=== PATIENT | male | born 1940 | race Caucasian/White ===

== ENCOUNTER 2016-05-05 16:25 | Inpatient (IN) | payer MEDICARE, OTHER ==
[~2016-05-05] VITALS: Ht 190.5 cm; Wt 129.7 kg
[~2016-05-05 16:25] MED LIST: ASPI-973 PO; ATOR80TA PO; CA C1TAB29 PO; EZET10TA PO; FLAX100010 PO; LISI-571 PO; MAGN250T29 PO; METO50TA3 PO; NIAC500C3 PO; NITR0.4T SL; RIVA20TA PO; TRAV2.5D5 AFFECT_EYE; UBID200C2 PO
[2016-05-05 16:34] VITALS: BP 158/75; PULSE 93; RESP 20; O2SAT 99
--- NOTE | 2016-05-05 16:35 | ED.REPORT ---
HPI-Syncope Date of Service May 05, 2016 ED Provider: Shahid García MD History of Present Illness: OCC This is a 76 year old male with a history of CAD, peripheral vascular disease, a -flutter, HTN, hyperlipidemia, s/p ablation and CABG x3 presenting to the emergency department via EMS due to near-syncopal episode that occurred just prior to arrival. Pt states he walked to his kitchen, became lightheaded, sat down and symptoms resolved. He then stood up, became lightheaded once again became lightheaded and developed heart palpitations and SOB, he consequently called 911. Associated symptoms during that episode include chest discomfort with radiation to the jaw on a pain scale of 2/10. Duration from symptom onset and resolution of symptoms was about 20 minutes. Pt states symptoms are similar to those he experienced previously with atrial flutter. Denies lower extremity swelling, chest pain, nausea, vomiting, diaphoresis or loss of consciousness at this time. Electronic Device Repairer Dr. Rivera. Nursing Notes Stated Complaint: SYNCOPE Nursing [facility]ed: Yes [facility] not reconciled) Allergies: Coded Allergies: iodine (Verified Allergy, Intermediate, 05/05/16) Scheduled Aspirin (Aspirin) 81 Mg Tablet 81 MG PO DAILY Atorvastatin (Lipitor) 80 Mg Tablet 80 MG PO QPM Ca Cmb 1/Vit D3/B-6/FA/B12/Av (Vitamin D3-Aloe 1,000 Unit Tab) 1 Each Tablet 1 EACH PO DAILY Ezetimibe (Zetia) 10 Mg Tablet 10 MG PO QPM Flaxseed (Flaxseed Oil) 1,000 Mg Capsule 1,000 MG PO DAILY Lisinopril (Lisinopril) 5 Mg Tablet 10 MG PO BID Magnesium Oxide (Magnesium) 250 Mg Tablet 250 MG PO DAILY Metoprolol Tartrate (Metoprolol Tartrate) 50 Mg Tablet 25 MG PO BIDWM Niacin (Niacin) 500 Mg Capsule.er 500 MG PO QPM Rivaroxaban (Xarelto) 20 Mg Tablet 20 MG PO QPM Travoprost (Benzalkonium) (Travoprost 0.004% Eye Drop) 2.5 Ml Drops 2.5 ML AFFECT_EYE QPM Ubidecarenone (Co Q-10) 200 Mg Capsule 200 MG PO BID Scheduled PRN Nitroglycerin SL (Nitrostat) 0.4 Mg Tab.subl 0.4 MG SL Q5MIN PRN PRN For Chest Pain General Time Seen by Provider: 16:32 Chief Complaint [place] faint Hx Obtained From: Patient Arrived By: Ambulance Onset Occurred: Just prior to arrival Symptom Duration: Since onset Severity: Current: No pain currently Pertinent Negative: Pt denies other symptoms Recent Healthcare: No recent doctor visit, No recent hospitalization Similar Sx Previous: No Past Medical History Past Medical History Notes: Electronic Device Repairer: Dr. 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 Physical Exam Initial Vital Signs Vital Signs (First) Date Time Temp Pulse Resp B/P Pulse Ox O2 Delivery O2 Flow Rate FiO2 05/05/16 16:34 35.8 93 20 158/75 99 Room Air - Initial VS: Reviewed, Unavailable (none on chart, ordered), Vital signs abnormal Head / Eyes: Atraumatic, Normocephalic, PERRL ENT: Mucous membranes moist, Conjunctiva normal, No scleral icterus Neck: Supple, Non-tender, Full range of motion Abdomen / GI: Soft, Non-tender, No guarding, No rebound, No distention Upper Extremities: Vascular intact, Neuro intact, No swelling, No tenderness Skin: Warm, Dry, No cyanosis Psychiatric: Mood/affect normal, Behavior normal, Normal thought content General/Constitutional: Awake, Alert, Well appearing Respiratory / Chest: Breath sounds NL, Breath sounds = bilat, No respiratory distress, No rales, No rhonchi, No wheezing Cardiovascular: Heart rate NL, Regular rhythm, Heart sounds NL, No murmurs, No rubs Lower Extremity / Pelvis / MS: Inspection NL, No swelling, Non-tender, No erythema, No deformity, Neurologic intact, Vascular intact, No edema Neurologic: Oriented X3, Speech NL, No motor deficits, No sensory deficits, CN II - XII intact, Reflexes equal bilat, Cerebellar NL Interpretation & Diagnostics Lab Results Interpretation Result Diagram: 05/05/16 1700 05/05/16 1700 Test 05/05/16 17:00 White Blood Count 4.5th/mm3 (3.8-10.1) Red Blood Count 4.80mil/mm3 (4.40-5.80) Hemoglobin 14.2g/dL (13.8-17.2) Hematocrit 42.8% (41.0-50.0) Mean Corpuscular Volume 89.2fL (81-100) Mean Corpuscular Hemoglobin 29.6pg (27.0-35.0) Mean Corpuscular Hemoglobin Concent 33.2% (32.0-37.0) Red Cell Distribution Width 14.1% (12.3-15.4) Platelet Count 96bil/L (150-400) Neutrophils (%) (Auto) 65.0% (40-74) Lymphocytes (%) (Auto) 21.5% (14-46) Monocytes (%) (Auto) 12.2% (4-12) Eosinophils (%) (Auto) 1.1% (0-5) Basophils (%) (Auto) 0.2% (0-3) Prothrombin Time 11.4sec (8.1-12.5) Prothromb Time International Ratio 1.06ratio Sodium Level 141mEq/L (134-144) Potassium Level 4.3mEq/L (3.5-5.2) Chloride Level 104mEq/L (97-108) Carbon Dioxide Level 24mmol/L (18-29) Blood Urea Nitrogen 12mg/dL (8-27) Creatinine 0.75mg/dL (0.76-1.27) Estimat Glomerular Filtration Rate 108mL/min (>59) Glucose Level 99mg/dL (60-99) Calcium Level 8.9mg/dL (8.5-10.1) Magnesium Level 2.0mg/dL (1.6-2.6) Total Bilirubin 0.9mg/dL (0.0-1.2) Aspartate Amino Transf (AST/SGOT) 31U/L (0-50) Alanine Aminotransferase (ALT/SGPT) 27U/L (0-44) Alkaline Phosphatase 65U/L (25-160) Troponin T < 0.010ug/L (0.0-0.011) Total Protein 6.3g/dL (6.4-8.4) Albumin 4.2g/dL (3.4-5.0) Thyroid Stimulating Hormone (TSH) 2.070uIU/mL (0.450-4.500) Hold Wheeler Top Tube Received (Received) Lab Results Interpretation: CBC mild thrombocytopenia CMP normal Troponin negative ECG Interpretation ECG Interpretation: NSR at a rate of [address] depression rate increased from previous ECG, pre-hospital ECG demonstates regular rate, tachycardia with more severe lateral ST depression Time: 16:50 Interpreted by: ED physician X-Ray Chest Interpretation Chest Xray Interpretation: IMPRESSION: 1. Indistinct opacities in the lung bases are nonspecific and may represent atelectasis, aspiration, or pneumonia. Dictated by: Giovanni Guzman M.D. on 05/05/2016 at 16:59 Approved by: Giovanni Guzman M.D. on 05/05/2016 at 17:01 Re-Eval/Medical Decision Med Decision/Clinical Course This is a 76-year-old male with a history of ablation for atrial flutter, and a previous history of coronary artery disease, who presents with an episode of near-syncope in a tachydysrhythmia captured on prehospital EKG. The patient notes that he presented to clinic/Hospital in recent weeks with asymptomatic bradycardia but apparently 19, as a result displayed a joanie was discontinued. He reports he has been doing well until today when he developed rapid palpitations and near syncope without actual syncope., Waited 5 minutes seemed to feel better try to get up and symptoms recurred-so EMS was contacted. He lives out of [facility] and was transported by EMS. He is found to have a profound tachycardia on evaluation by EMS, but had a spontaneous resolution to what appears to be in normal sinus rhythm. While he has a history of atrial flutter and a right bundle-branch block, I do not appreciate flutter waves. In the morphology of the QRS appears identical between his current EKG with a resting normal heart rate, and his tachycardia-arguing for SVT with aberrancy rather than ventricular tachycardia. he was asymptomatic on arrival. Medically appears well in no distress. However while in the department he had several bouts of brief tachydysrhythmia the same thing happening have a rapid heart rate, it would spontaneously resolve, but again did not demonstrate blood or weighs, and the underlying rhythm appears to be SVT rather than atrial flutter. His first episode had spontaneous resolution, and the second episode a modified Valsalva maneuver per the recent Lancet article was employed with some improvement, and cardioversion a minute later. Unfortunately, his recent bradycardia complicates things she is now describing essentially a tachycardia-bradycardia syndrome. Because of that history of bradycardia with beta blockers, and esmolol short acting drip was used - because he actually was cardioverted back to normal rhythm before the initiation of the drip, started on the drip without a bolus. Again the drip was used because it out patient's now had a total of 3-4 episodes of symptomatic tachydysrhythmia. His labs are normal. Cardiology has been consulted and reveals case been discussed with Dr. Samayoa Patient is being admitted to the hospitalist service. He is admitted in improved condition Source of Hx: Old records, EMS Re-Evaluation/Progress : Time of Eval: 18:12 Re-Evaluation/Progress Note: Discussed patient care with family members now present in the room, plan for admission, all questions addressed. Consultation #1: Referral / Consult Name: Brandan Samayoa MD Consulted With: Cardiology Call Returned at: 18:12 Computer Forwarding System Markup Clerk: Will see patient, Agrees with eval, Agrees with plan Consultation #2: Referral / Consult Name: Caden Cannon MD Consulted With: Hospitalist Call Returned at: 18:21 Differential Diagnosis: Positive: Dysrhythmia (Tachy-Thomas), Negative: Acute coronary syndrome, Alcohol abuse, Anxiety reaction, Electrolyte disorder, Malingering, Pneumothorax, Prolonged QT syndrome, Pulmonary embolus, Seizure, Subarachnoid hemorrhage, Vasovagal syncope Counseled Regarding: Diagnosis, Lab results, Need for follow-up, Need for admission Discharge & Departure Impression: Primary Impression: Atrial arrhythmia Additional Impression: Tachycardia-bradycardia syndrome Disposition: ADMITTED TO HOSPITAL Discharge Condition All VS Reviewed: Yes Condition: Stable Referrals: Damian Latham MD (PCP) Crit Care Except Billable Proc Time Spent: 30-74 minutes Services Performed: Patient management by me, Time spent at bedside, Reviewing test results, Reviewing imaging, Discussing patient care, Documentation in record, Time with fam/surrogate Scribe Attestation Portions of this note were transcribed by Jorge Riggs. I, Dr. García personally performed the history, physical exam and medical decision-making; I reviewed and confirmed the accuracy of the information in the transcribed note. Signed by: ebenezer Vasquez. 05/05/2016, 23:30. Shahid García MD May 05, 2016 16:35 JORGE RIGGS May 05, 2016 16:37
--- NOTE | 2016-05-05 17:02 | DRSVH ---
PROCEDURE: X-RAY CHEST ONE VIEW, PORTABLE ([id number]) INDICATIONS: Syncope TECHNIQUE: One view of the chest was acquired. COMPARISON: [facility], , CHEST 1VW (PORTABLE), 02/27/2014, 10:10. FINDINGS: Surgical changes and devices: Postsurgical changes are redemonstrated in mediastinum with multiple me an sternotomy wires again noted. Lungs and pleura: No pleural effusions or pneumothorax. There are low lung volumes. There are a fe w patchy indistinct opacities in the lung bases, left greater than right. Mediastinum: Mediastinal contours appear unchanged. Heart size is normal. Bones and chest wall: No suspicious bony lesions. Overlying soft tissues appear unremarkable. IMPRESSION: 1. Indistinct opacities in the lung bases are nonspecific and may represent atelectasis, aspiration, or pneumonia. Dictated by: Giovanni Guzman M.D. on 05/05/2016 at 16:59 Approved by: Giovanni Guzman M.D. on 05/05/2016 at 17:01
[2016-05-05 17:20] LABS: BASOPHILS % (AUTO) 0.2 % (0-3); EOSINOPHILS % (AUTO) 1.1 % (0-5); MONOCYTES % (AUTO) 12.2 % (4-12); Mean Corpuscular Hemoglobin 29.6 pg (27.0-35.0); Mean Corpuscular Volume 89.2 fL (81-100); Platelet Count 96 bil/L (150-400)
[2016-05-05 17:35] LABS: INR 1.06 ratio
[2016-05-05 17:44] LABS: TROPONIN T < 0.010 ug/L (0.0-0.011)
[2016-05-05] MEDS ORDERED: Esmolol 10,000 mCg/mL 10 mL Inj IVPUSH ONE (18:10)
[2016-05-05] MEDS ORDERED: Polyethylene Glycol (PEG) 17 Gm Powder PO PRN (18:25)
[2016-05-05] MEDS ORDERED: Ondansetron 2 mg/mL 2 mL Inj IVPUSH PRN (18:25)
[2016-05-05] MEDS ORDERED: Alum-Mag Hydrox-Simeth 30 mL Suspension PO PRN (18:25)
[2016-05-05] MEDS: Esmolol 2,500 mg/250 mL NS 2,500,000 MCG in IV Premix 1 EACH IV SCH (18:32)
[2016-05-05 19:16] VITALS: BP 158/90; PULSE 90; RESP 20; O2SAT 99
[2016-05-05 20:02] VITALS: BP 165/95; PULSE 90; RESP 20; O2SAT 98
[2016-05-05 20:13] VITALS: PULSE 91
[2016-05-05 20:19] VITALS: BP 163/93; PULSE 90; RESP 20; O2SAT 96
[2016-05-05 21:02] LABS: APPEARANCE,URINE CLEAR (CLEAR,HAZY); COLOR,URINE YELLOW (YELLOW)
[2016-05-05 21:03] LABS: OCCULT BLOOD,URINE NEGATIVE (NEGATIVE); PH,URINE 7.5 (5.0-8.0); UROBILINOGEN,URINE NORMAL (NORMAL)
[2016-05-05 23:51] VITALS: BP 144/84; PULSE 91; RESP 13; O2SAT 95
--- NOTE | 2016-05-05 23:53 | PCM.HPMED ---
Subjective Date of Service May 05, 2016 Primary Provider: Admitting Physician: Caden Cannon MD Primary Care Physician: Elmer Landaverde MD Attending Physician: Caden Cannon MD Admit Status: From the Emergency Department, Full Admit, [facility] Telemetry Chief Complaint: Near syncope History of Present Illness: Nikolas Hawthorne is a 76 year old male with Coronary artery disease, peripheral vascular disease, a-flutter, HTN, hyperlipidemia, s/p ablation and CABG x3 presenting to the emergency department via EMS due to near-syncopal episode that occurred just prior to arrival. Pt states he walked to his kitchen, became lightheaded, sat down and symptoms resolved. He then stood up, became lightheaded once again became lightheaded and developed heart palpitations and SOB, he consequently called 911. Associated symptoms during that episode include chest discomfort with radiation to the jaw on a pain scale of 2/10. Duration about 20 minutes. Patient reports this is similar to his chronic anginal symptoms Pt states symptoms are similar to those he experienced previously with atrial flutter. Denies lower extremity swelling, chest pain, nausea, vomiting, diaphoresis or loss of consciousness at this time. Supervisor Mechanic [employer] Dr. Rivera. stopped his Metoprolol recent when his heart rate dropped to 20. He was also wearing a Zio patch until last Thursday, results has not been discussed yet. Medication changes includes stopping Metoprolol and increasing dose of Lisinopril to 20 mg bid (from 10 mg bid) Case discussed with Dr García, initial EKG showed SVT with aberrancy with HR 150s. Esmolol drip was started. He spoke to Dr Samayoa who will consult to determine a pacemaker placement Review of Systems: Pertinent positives as noted in HPI. All other systems were reviewed and are negative Allergies Coded Allergies: iodine (Verified Allergy, Intermediate, 05/05/16) Home Medications From [facility], not yet confirmed Nikolas Hawthorne [id number] 1940 12/03/2015 11:30 AM 03/24 aspirin 81 mg tablet,delayed release take 1 tablet by oral route every day Co Q-10 200 mg capsule 1 capsule by mouth 2 times daily flaxseed oil 1,000 mg capsule 1 capsule by mouth daily Lipitor 40 mg tablet take 0.5 tablet by oral route every day lisinopril 20 mg tablet take 1 tablet by oral route bid magnesium 250 mg tablet 1 tab by mouth daily niacin 500 mg tablet take 1 tablet by oral route every day nitroglycerin 0.[address] 1 tablet by sublingual route for chest pain; may repeat every 5 min up to 3; if pain persists call 911 Travatan Z 0.004 % eye drops instill 1 drop by ophthalmic route every day into affected eye(s) in the evening Vitamin D3 1,000 unit tablet Take 1 tablet daily Zetia 10 mg tablet 1 tablet by mouth daily PMH 1. Coronary artery disease status post CABG 3 in 1976, s/p post PCI and stenting LAD in January 2011, October 2013 2. Hypertension. 3. Hyperlipidemia. 4. Frequent PVCs. 5. Prior unstable angina secondary to vein graft failure. 6. Left groin pseudoaneurysm requiring open repair. 7. Atrial flutter s/p ablation with AVNRT, 1 st degree AV block 8. Carotid stenosis 9. Obstructive Sleep apnea: plan to have sleep study . Surgical History Cardiac cath and CABG with SVG Tonsillectomy Ablation surgery Carotid endarterectomy Carpal tunnel release Cataract surgery Family History Notable for two brothers from heart attacks. Both father and mother had heart disease. Mother had breast cancer Social History Hx Alcohol Use: Yes (Social drinker, dinner time) Hx Substance Use: No Hx Tobacco Use: Yes Smoking Status: Former Smoker (1974) Living Arrangement: with Family Exam Vital Signs Vital Sign - Last Date Time Temp Pulse Resp B/P Pulse Ox O2 Delivery O2 Flow Rate FiO2 05/05/16 20:02 37.2 90 20 165/95 98 Room Air Exam General: Alert, Oriented X3, Cooperative, No acute Distress Eyes: PERRLA, Scleral Anicteric Mouth: Mouth Normal, Mucous Membranes Moist/[place] Neck: Supple, no Thyromegaly, trachea central. Chest & Lungs: Clear to auscultation & percussion, No adventitious breath sounds, no crackles, no wheeze Cardiovascular: Normal S1, Normal S2, No Murmurs/Rubs/Gallops, sinus Rhythm, ( No JVD, no peripheral edema) Pulses: Radial (present and equal), Dorsalis Pedi (present and equal) Abdomen: Soft, Non-tender, Non-distended, Normoactive bowel tones. Musculoskeletal: Unremarkable. Normal range of motion, no swollen or erythematous joints Extremities: No edema, no cyanosis, no clubbing. Venous stasis changes Skin: No rashes. Warm and dry, no erythematous areas Neurological: Grossly neurologically intact, Normal Speech, Sensation Intact Lymphatic: Lymph nodes Cervical and Axillary not palpable. Lab and Diagnostics Labs Laboratory Tests Test 05/05/16 17:00 05/05/16 19:45 White Blood Count 4.5th/mm3 (3.8-10.1) Red Blood Count 4.80mil/mm3 (4.40-5.80) Hemoglobin 14.2g/dL (13.8-17.2) Hematocrit 42.8% (41.0-50.0) Mean Corpuscular Volume 89.2fL (81-100) Mean Corpuscular Hemoglobin 29.6pg (27.0-35.0) Mean Corpuscular Hemoglobin Concent 33.2% (32.0-37.0) Red Cell Distribution Width 14.1% (12.3-15.4) Platelet Count 96bil/L (150-400) Neutrophils (%) (Auto) 65.0% (40-74) Lymphocytes (%) (Auto) 21.5% (14-46) Monocytes (%) (Auto) 12.2% (4-12) Eosinophils (%) (Auto) 1.1% (0-5) Basophils (%) (Auto) 0.2% (0-3) Prothrombin Time 11.4sec (8.1-12.5) Prothromb Time International Ratio 1.06ratio Sodium Level 141mEq/L (134-144) Potassium Level 4.3mEq/L (3.5-5.2) Chloride Level 104mEq/L (97-108) Carbon Dioxide Level 24mmol/L (18-29) Blood Urea Nitrogen 12mg/dL (8-27) Creatinine 0.75mg/dL (0.76-1.27) Estimat Glomerular Filtration Rate 108mL/min (>59) Glucose Level 99mg/dL (60-99) Calcium Level 8.9mg/dL (8.5-10.1) Magnesium Level 2.0mg/dL (1.6-2.6) Total Bilirubin 0.9mg/dL (0.0-1.2) Aspartate Amino Transf (AST/SGOT) 31U/L (0-50) Alanine Aminotransferase (ALT/SGPT) 27U/L (0-44) Alkaline Phosphatase 65U/L (25-160) Troponin T < 0.010ug/L (0.0-0.011) Total Protein 6.3g/dL (6.4-8.4) Albumin 4.2g/dL (3.4-5.0) Thyroid Stimulating Hormone (TSH) 2.070uIU/mL (0.450-4.500) Hold Wheeler Top Tube Received (Received) Result Diagram: 05/05/16 1700 05/05/16 1700 X-Rays, CTs and MRIs X-RAY CHEST ONE VIEW, PORTABLE 05/05 IMPRESSION: 1. Indistinct opacities in the lung bases are nonspecific and may represent atelectasis, aspiration, or pneumonia. Dictated by: Giovanni Guzman M.D. on 05/05/2016 at 16:59 Approved by: Giovanni Guzman M.D. on 05/05/2016 at 17:01 Assessment & Plan Nikolas Hawthorne is a 76 year old male with Coronary artery disease, peripheral vascular disease, a-flutter, HTN, hyperlipidemia, s/p ablation and CABG x3 presenting to the emergency department via EMS due to near-syncopal episode 1. Tachybrady syndrome. Present on admission Recently had significant bradycardia and Metoprolol stopped now dealing with tachycardia due to no rate control medication on board. Differential diagnosis includes Hypothyroidism and Ischemic disease - nothing by mouth after midnight - monitor on telemetry - checking TSH - continue rate control with Esmolol drip - EPS consultation for pacemaker placement with Dr Samayoa - avoid beta blockers 2. Coronary artery disease status post CABG with stenting Difficult to see ischemic changes on EKG given changes changes and RBBB. Chest pain resolved but brief, typical of angina - Troponin negative - no indications for Heparin drip or medical treatments 3. Hypertension. Elevated on admission due to stress or anxiety - continue Lisinopril 20 mg bid 4. Hyperlipidemia. - continue Lipitor and Zetia 5 Obesity with suspected Sleep Apnea - outpatient Sleep study - Cardiac rehab - Acetaminophen as needed for mild pain/fever/headache - Bowel regimen as needed - Antiemetic as needed Patient admitted under inpatient status with expected length of stay > 2 midnights for severity of present symptoms, complexities of treatment plan and risk for adverse event . Resuscitation Status: CPR: Attempt Resuscitation Caden Cannon MD May 05, 2016 20:16
[2016-05-06] VITALS (9 sets, daily range): BP systolic 121–157; BP diastolic 49–84; PULSE 50–90; RESP 12–18; O2SAT 91–97
[2016-05-06] MEDS: Heparin 5,000 Unit/mL Inj SUBQ SCH ×4 (00:01→20:30)
[2016-05-06] MEDS: Esmolol 2,500 mg/250 mL NS 2,500,000 MCG in IV Premix 1 EACH IV SCH ×4 (01:25→16:55)
--- NOTE | 2016-05-06 04:27 | NUR ---
admit note pt a/o times three, clay, moved self over to bed from [facility] at 2015 to room 2009, admit info done per info from pt, med rec done per pt info also, admitting md stevens paged aware that med rec done, no new orders, night hospitalist states home meds can be ordered in am, tele=sr ivcd, pac's and pvc's, bp stable, afebrile, pt c/o left sided cp with some change with deep breath, ekg done, results paged to admitting md, no new orders, no more complaints of cp during the night, esmolol gtt at 50mcg/kg/min when hr 90's and decreased to 25mcg/kg/min at approx 0215 when hr decreased to 60's-sr with pac/pvc's, ls -clear, ra sats mid 90's when pt awake, ra sats when pt asleep=90%, pt placed on two liters o2 per nc=sats =95%-97%, denies n/v, tolerated juice and sandwich upon admit well, npo after mn, see assessment charting, imcu status, see flow sheet for vital signs noted q1hr, plan:npo after mn, echo and cardiology in am,
--- NOTE | 2016-05-06 11:29 | CONS ---
[address] [address] CONSULTATION REPORT PATIENT: ALBERTO YATES : 1940 MR#: [id number] ADMIT: 05/05/2016 JOB ID: [id number] DATE OF SERVICE: 05/06/2016 CARDIOLOGY CONSULTATION: REASON FOR CONSULT: For the evaluation of palpitations, chest discomfort and near syncopal episode. CHIEF COMPLAINT: As stated above. PRESENT HISTORY: This 76-year-old pleasant male who has a complex coronary artery disease including first bypass surgery in 1974, SVG graft to LAD stenting in January 2011, recurrence of angina, status post four-vessel bypass surgery by Dr. Berrios in 2013 with ORTA graft to LAD, and sequential radial graft to diagonal, ramus and OM, LV ejection fraction about 50%-55% based on echocardiogram done in January 2015, mild mitral regurgitation, history of paroxysmal atrial flutter for which he underwent ablation by Dr. Samayoa in February 2015, noncritical carotid artery disease, history of right bundle branch block, first-degree AV block, sinus bradycardia, essential hypertension, hyperlipidemia, degenerative joint disease, history of left iliac artery stenting as well as open repair of pseudoaneurysm of left groin got admitted because of above-mentioned chief complaint. According to the patient, about three weeks ago he went to see his PCP regarding his left knee pain. His heart rate was found to be in 20s. Hence they discussed the case with Dr. Rivera. His metoprolol was discontinued. Four days after discontinuation of metoprolol, his blood pressure started going up. His systolic blood pressure went up to 170s. He started taking lisinopril 20 mg twice a day. Yesterday, he did his exercise. He rides stationary bicycle 3-5 times a week for about half an hour and did some weight lifting and pushing. Then he walked to his kitchen, became lightheaded, sat down and his symptoms got better. Then he stood up again and felt lightheaded. This time he felt that his heart was beating fast. He had chest discomfort with radiation to the jaw. On a scale of 1-10, it was 2-4 in intensity. The whole episode lasted about 20 minutes. He was lightheaded. He did not completely pass out. He did not throw up. He felt some shortness of breath as well. 911 was called. The patient was brought to the ED. He was tachycardia. His heart rate was about 150s. The patient was started on esmolol drip. At present, he is lying down flat. He is feeling better. He is not having more palpitations. No fever, cough, expectoration, chest pain or shortness of breath or stroke-like symptoms. Denies any resting claudication pain. PAST MEDICAL HISTORY: 1. History of CAD, details as stated above including paroxysmal atrial flutter. 2. Status post ablation in February 2015. 3. Noncritical carotid artery disease. 4. Essential hypertension. 5. Hyperlipidemia. 6. Right bundle branch block. 7. First-degree AV block. 8. Frequent PVCs. 9. Obstructive sleep apnea. 10. Left carotid endarterectomy. 11. Tonsillectomy. 12. Cataract surgery. 13. Carpal tunnel surgery. 14. Other problems as stated above. PAST SURGICAL HISTORY: As stated above. ALLERGIES: The patient is allergic to IODINE. SOCIAL HISTORY: Denies any alcohol abuse. The patient has history of tobacco abuse in the past. FAMILY HISTORY: Positive for coronary artery disease. MEDICATIONS AT HOME: He was on: 1. Aspirin 81 mg daily. 2. Lipitor 20 mg daily. 3. Lisinopril 20 mg twice a day. 4. Magnesium. 5. Niacin 500 mg tablet every day. 6. Zetia 10 mg daily. 7. Vitamin D3. 8. Travatan eye drops. REVIEW OF SYSTEMS: Ten point review of systems were obtained. They are negative except as stated above. PHYSICAL EXAMINATION: Blood pressure 157/71, heart rate around 54, respiratory rate 18, oxygen saturation 96%. HEENT: No significant anemia, jaundice. Neck: No apparent JVP. The patient has left carotid endarterectomy scar. I do not appreciate any obvious bruit. Chest: No obvious crepitation or rhonchi. CVS: Clinically S1, S2 normal. No S3, no S4. Very soft ejection systolic murmur at the base. Abdomen: Obese, no obvious pulsatile mass felt. No obvious hepatosplenomegaly. Extremities: Mild pedal edema. Vascular: I can feel distal pulses. No evidence of critical limb ischemia. PERINATOLOGY PHYSICIAN: Alert, oriented to time, place and person. No obvious motor deficits. LABORATORIES: Sodium 141, potassium 4.3, BUN 12, creatinine 0.75. Calcium 8.9, magnesium 2.0 with normal AST, ALT and bilirubin. Troponin T less than 0.010. Albumin 4.2. TSH 2.07. WBC 4.5, hemoglobin 14.2, platelets 96. The patient has chronic thrombocytopenia. In January 2011 platelets were 94. Polymorphs 65. INR 1.06. EKG yesterday by paramedics revealed wide QRS tachycardia, which appears to be regular, rate 179, with underlying right bundle branch block which is old. I suspect that it could be underlying atrial flutter with 2:1 block. There is a right axis with left posterior fascicular block as well which are old. At present, he is in sinus rhythm with frequent PVCs, sometimes ventricular trigeminy or quadrigeminy. EKG at about 8:55 p.m. yesterday revealed likely atrial rhythm with possible 2:1 block with ventricular rate about 91 with underlying right bundle branch block, right axis with left posterior fascicular block. QTc 492 msec. X-ray chest: Normal size heart. There are a few patchy indistinct opacities in the lung bases, left greater than right. ASSESSMENT AND PLAN: Episode of palpitations, lightheadedness, presyncopal episode and chest pain with anginal component in the setting of tachycardia. The patient has known history of atrial flutter status post ablation in February 2015. I think there is a recurrence of atrial flutter with fast ventricular rate. He has a chronic right bundle branch block, left posterior fascicular block as well as first-degree AV block. During tachycardia, the patient has diffuse ST depression suggestive of tachycardia induced demand ischemia as well. His first set of troponin normal. The patient has known coronary artery disease with coronary artery bypass surgery twice, details as stated above, with underlying diffuse atherosclerotic vascular disease including left carotid endarterectomy, essential hypertension, hyperlipidemia, sleep apnea, chronic thrombocytopenia etc. About three weeks ago, metoprolol was discontinued because his heart rate was found to be in 20s. There is a pattern of tachybrady. The patient is symptomatic with tachycardia/bradycardia. For his underlying coronary artery disease as well as management of fast ventricular rate, he will need sinus alexis AV alexis slowing medications like beta joanie. However, profound bradycardia is one of the contraindications. Hence, at this point of time, recommendation is to consider permanent pacemaker and then reinstitute beta joanie. He had atrial flutter ablation. I will talk to Dr. Samayoa to see him regarding consideration of pacemaker as well as ablation of atrial flutter. Considering his CHADS 2 vascular score, he will need anticoagulation as well. Will start him on heparin. Will get 2D echo. We will repeat another CPK troponin. Once he gets pacemaker, he will need ischemic evaluation. If he rules out, it can be done as an outpatient. Clinically no evidence of critical limb ischemia. I discussed the plan with the patient. He agrees and concurs. Thanks for the cardiology consult. Overall time today spent about 80 minutes including reviewing his old records.
[2016-05-06 11:47] LABS: TROPONIN T 0.096 ug/L (0.0-0.011)
--- NOTE | 2016-05-06 13:37 | PCM.PNMED ---
Subjective Date of Service May 06, 2016 Subjective 76-year-old man with history of atrial dysrhythmia presents with presyncopal events, palpitation and ventricular tachycardia. No further presyncopal symptoms overnight. Endorses chronic mild right knee pain, and left inguinal ache. Exam Vital Signs Vital Sign - Last Date Time Temp Pulse Resp B/P Pulse Ox O2 Delivery O2 Flow Rate FiO2 05/06/16 12:16 60 05/06/16 12:04 36.5 16 121/60 95 Room Air 05/06/16 08:00 2.00 Intake and Output 05/05/16 05/05/16 05/06/16 Cumulative From/Thru 15:00 23:00 07:00 05/05/16 16:34 - 05/06/16 05:26 Intake Total 1060 ml 1060 ml Output Total 1200 ml 1200 ml Balance -140 ml -140 ml Intake Oral 780 ml 780 ml IV Total 280 ml 280 ml Output Urine Total 1200 ml 1200 ml # Bowel Movements 0 0 Exam General: Obese man lying flat in bed, no acute distress HEENT: sclerae anicteric, oral mucosa moist Neck: Supple, no adenopathy Chest: clear to auscultation Cardiac: S1S2, irregular beats, no murmur Abdomen: BS normal, non-tender : Left inguinal canal without hernia. Testes essentially normal, possible left varicocele but patient unable to stand up. Extremities: No edema; right knee without effusion or warmth or tenderness Neuro: A&O, cranial nerves symmetric, motor strength 5/5, coordination normal Lab and Diagnostics Result Diagram: 05/05/16 1700 05/05/16 170 X-Rays, CTs and MRIs X-RAY CHEST ONE VIEW, PORTABLE 05/05 IMPRESSION: 1. Indistinct opacities in the lung bases are nonspecific and may represent atelectasis, aspiration, or pneumonia. Dictated by: Giovanni Guzman M.D. on 05/05/2016 at 16:59 Approved by: Giovanni Guzman M.D. on 05/05/2016 at 17:01 Assessment & Plan Nikolas Hawthorne is a 76 year old male with Coronary artery disease, peripheral vascular disease, a-flutter, HTN, hyperlipidemia, s/p ablation and CABG x3 presenting to the emergency department via EMS due to near-syncopal episode #. Tachybrady syndrome. Present on admission. Recently had significant bradycardia and Metoprolol stopped now dealing with tachycardia due to no rate control medication on board. - EPS consultation for pacemaker placement with Dr Samayoa - Okay to eat today, nothing by mouth after midnight instructions per cardiology - monitor on telemetry - continue rate control with Esmolol drip - Oral intake okay, discontinue IV fluids #. Hypertension. Elevated on admission due to stress or anxiety - continue Lisinopril 20 mg bid #. Subclinical hypothyroidism. Doubt that is mild TSH elevation contributes to risk of bradycardia. - Check free T4 - Recommend convalescent thyroid studies to PCP Stable, chronic and/or resolving problems: #. Coronary artery disease status post CABG with stenting Difficult to see ischemic changes on EKG given changes changes and RBBB. Chest pain resolved but brief, typical of angina - Troponin negative - no indications for Heparin drip or medical treatments #. Hyperlipidemia. - continue Lipitor and Zetia # Obesity with possible Sleep Apnea - We will defer outpatient Sleep study to PCP - Acetaminophen as needed for mild pain/fever/headache - Bowel regimen as needed - Antiemetic as needed Patient admitted under inpatient status with expected length of stay > 2 midnights for severity of present symptoms, complexities of treatment plan and risk for adverse event . VTE Mechanical Devices: Intermittant Pneumatic CD Resuscitation Status: CPR: Attempt Resuscitation Time spent 35 minutes patient assessment, care coordination including review of data with consultants. Rico Johns MD May 06, 2016 13:37
--- NOTE | 2016-05-06 15:35 | NUR ---
Up in room, to bathroom with [id number]. Now on portable tele per patient request. TropI 0.[address] Rhodes. Remains NPO per Dr. Rhodes until Dr. Samayoa sees today for possible pacemaker. Remains on Esmolol gtt at 25mcg. Sinus giselle with frequent PVCs, IVCD on tele. BP stable. IVT restarted IV to left arm. Right arm site appears slightly puffy with a quarter-size induration; patient denies pain to site, slight itching present. Supportive at bedside.
--- NOTE | 2016-05-06 16:42 | DRSVH ---
[facility] [address] [place] [address] Echocardiogram Report Name: ALBERTO YATES Study Date: 05/06/2016 Height: 75 in Hospital Exam Location: [facility] Weight: 286 lb Gender: Male BSA: 2.6 m2 : 1940 Age: 76 yrs BP: 129/49 mm Hg Reason For Study: Arrhythmia History: CABG Ordering Physician: [facility]PITAL[facility] Performed By: Wilma Weaver Referring Physician: Brandan Samayoa Interpretation Summary Left ventricular ejection fraction is estimated to be .55. frequent ectopics and short pauses are noted. There are no obvious focal wall motion abnormalities noted but poor endocardial definition reduces the sensitivity for the detection of such. The right ventricle is mildly dilated. The left atrium is severely dilated. The right atrium is moderate to severely dilated. The interatrial septum is intact with no evidence for an atrial septal defect. There is moderate mitral regurgitation. Moderate atherosclerotic plaque(s) in the aortic arch. Procedure: A two-dimensional transthoracic echocardiogram with color flow and Doppler was performed. A contrast injection of Definity was performed to improve assessment of LV function. Comparison is made with the echocardiogram of 02/05/2015. The heart rate ranged between 48-65 bpm during the study. The patient had a bundle branch block rhythm during the exam. Left Ventricle: The left ventricle is normal in size. Left ventricular wall thickness is mildly increased. Left ventricular ejection fraction is estimated to be .55. There has been no significant change since the previous exam. There are no obvious focal wall motion abnormalities noted but poor endocardial definition reduces the sensitivity for the detection of such. Right Ventricle: The right ventricle is mildly dilated. Atria: The left atrium is severely dilated. The right atrium is moderate to severely dilated. There is no Doppler evidence for an interatrial shunt. The interatrial septum is intact with no evidence for an atrial septal defect. Mitral Valve: The mitral valve leaflets appear mildly thickened, but open well. There is moderate mitral regurgitation. Aortic Valve: The aortic valve is trileaflet. The aortic valve opens well. No aortic regurgitation is present. Tricuspid Valve: The tricuspid valve is normal in structure and function. There is trace tricuspid regurgitation. Right ventricular systolic pressure is estimated to be 32 mmHg plus the clinically estimated CVP which cannot be estimated on this exam. Pulmonic Valve: The pulmonic valve is not well visualized. There is mild pulmonic regurgitation. Great Vessels: The aortic root is normal size. The ascending aorta could not be visualized. Moderate atherosclerotic plaque(s) in the aortic arch. The inferior vena cava was not visualized. Pericardium/ Pleura There is no pericardial effusion. MMode/2D Measurements & Calculations LVIDd: 5.7 cm LA dimension: 4.7 cm RA long axis LVOT diam LVIDs: 4.0 cm FS: 29.8 % LA A2 area: 35.4 cm RA area AoV Opening EPSS: 0.64 cm LA A4 area: 33.0 cm IVSd: 1.3 cm LA length (vol): 7.1 cm : 29.8 cm Ao root diam LVPWd: 1.1 cm LA vol: 139.8 ml RA vol : 3.5 cm LA vol index : 107.ml RA : 54.7 ml/m2 : 42.2 mm2 LV moon. diameter/BSA LV sys. diameter/BSA RVD1 (basal) TAPSE: 1.6 cm (cm/m^2): 2.2 (cm/m^2): 1.6 Doppler Measurements & Calculations Ao V2 max MV E max oswald MV E/A: 2.2 TR max oswald : 104.2 cm/sec : 100.9 cm/sec Med Peak E' Oswald : 280.6 cm/sec Ao max PG MV A max oswald TR max PG : 4.4 mmHg : 46.4 cm/sec E/E' med: 24.0 : 31.5 mmHg Ao mean PG MV P1/2t: 79.2 msec Pulm A Revs Dur PA V2 max : 89.1 cm/sec LVOT Max Oswald MV A dur: 0.14 sec PA mean PG : 108.8 cm/sec RILEY(I,D): 5.1 cm PA Accel Time sev ratio : 0.14 sec MV dec time MV P1/2t max oswald Ao V2 mean LV V1 max PG : 0.27 sec : 59.5 cm/sec Ao V2 VTI: 25.8 cm LV V1 VTI MVA(P1/2t): 2.8 cm2 : 27.5 cm RILEY(V,D): 5.0 cm2 PA V2 mean RILEY indexed to BSA Pulm A Revs Dur - MV : 56.6 cm/sec (cm^2/m^2): 2.0 A Dur: 0.03 msec Electronically signed by: Gregory Carlson on Reading Physician:05/06/2016 04:41 PM
[2016-05-07 03:23] VITALS: BP 138/67; PULSE 52; RESP 18; O2SAT 96
--- NOTE | 2016-05-07 06:15 | NUR ---
Uneventful Night / Tele No c/o chest pain, pressure or palpitations, Tele SB-SR with Bigeminal to Trigeminal PVCs with HR 50-70s per Basket Hand Braider. VS stable and Afebrile. No c/o dizziness or lightheadedness while up.
--- NOTE | 2016-05-07 07:43 | PCM.DIMED ---
Discharge Instructions Date of Service May 07, 2016 Dates of Hospitalization May 05, 2016 at 18:53 Discharge Diagnosis Discharge Diagnosis Sick sinus syndrome Diet Heart Healthy Activity Limited until seen by PCP Call your provider Shortness of breath Patient Instructions Contact Dr. Samayoa's office as they will schedule your follow-up care. Follow-up plan Dr. Samayoa's office will schedule you for pacemaker placement. Follow-up Provider: Brandan Samayoa MD Follow-up with PCP in: 1 week Rico Johns MD May 07, 2016 07:43
[2016-05-07] MEDS: Heparin 5,000 Unit/mL Inj SUBQ SCH (08:30)
[2016-05-07 09:06] VITALS: BP 125/68; PULSE 54; RESP 16; O2SAT 94
[2016-05-07 09:19] VITALS: PULSE 51
--- NOTE | 2016-05-07 09:20 | NUR ---
Social Work Note: Initial Assessment Data& Assessment: EMR reviewed. SW met with pt at bedside to discuss discharge planning and assess for any unmet needs. Per pt is medically improved and ready for discharge. Nikolas Hawthorne is a 76 year old male admitted on 05/05/2016 for tachy/giselle syndrome. Per MD pt is medically improved and will be getting pacer placement as an outpt. Pt lives in [place] with his and is independent at baseline. Pt does not use any DME and drives. Pt has Medicare and [employer] supplemental insurance coverage. Pt sees Elmer Landaverde MD for primary care. Pt denies HH or SNF hx. Pt denies LTC insurance or service connection through the [facility]. Pt confirms he has DPOA paperwork completed and SW requested a copy for his chart when possible. Pt son transporting pt home today. Pt denies any other needs. No other discharge needs identified. Plan: Per pt is medically improved and ready to discharge home via POV. Pt son transporting pt home today. Pt denies any other needs. No other discharge needs identified. SHAZIA Arenas Addendum: 05/07/16 at 0925 by YFN BADILLO Amended: Links added.
--- NOTE | 2016-05-07 11:05 | NUR ---
Discharge Patient sinus giselle in the 50s. Patient plans to have pacemaker placed as outpatient procedure next week. VSS. Denies pain/discomfort. Discharge instructions printed and reviewed verbally with patient and all questions answered. IV DC'd intact. Patient left unit via WC with all personal belongings, accompanied by his and discharged home via personal vehicle.
--- NOTE | 2016-05-07 19:33 | PCM.DC.MED ---
Discharge Summary Date of Service May 07, 2016 Dates of Hospitalization Date of Hospital Admission May 05, 2016 at 18:53 Date of Discharge: May 07, 2016 Providers: Admitting Physician: Caden Cannon MD Primary Care Physician: Elmer Landaverde MD Attending Physician: Caden Cannon MD Diagnosis at Time of Discharge Diagnosis at Time of Discharge Sick sinus syndrome Consultations Cardiology, Dr. Rhodes Procedures XRay, CTs & MRIs X-RAY CHEST ONE VIEW, PORTABLE 05/05 IMPRESSION: 1. Indistinct opacities in the lung bases are nonspecific and may represent atelectasis, aspiration, or pneumonia. Dictated by: Giovanni Guzman M.D. on 05/05/2016 at 16:59 Approved by: Giovanni Guzman M.D. on 05/05/2016 at 17:01 Brief History History of Present Illness (per admission note): Nikolas Hawthorne is a 76 year old male with Coronary artery disease, peripheral vascular disease, a-flutter, HTN, hyperlipidemia, s/p ablation and CABG x3 presenting to the emergency department via EMS due to near-syncopal episode that occurred just prior to arrival. Pt states he walked to his kitchen, became lightheaded, sat down and symptoms resolved. He then stood up, became lightheaded once again became lightheaded and developed heart palpitations and SOB, he consequently called 911. Associated symptoms during that episode include chest discomfort with radiation to the jaw on a pain scale of 2/10. Duration about 20 minutes. Patient reports this is similar to his chronic anginal symptoms Pt states symptoms are similar to those he experienced previously with atrial flutter. Denies lower extremity swelling, chest pain, nausea, vomiting, diaphoresis or loss of consciousness at this time. Content Administrator Dr. Rivera. stopped his Metoprolol recent when his heart rate dropped to 20. He was also wearing a Zio patch until last Thursday, results has not been discussed yet. Medication changes includes stopping Metoprolol and increasing dose of Lisinopril to 20 mg bid (from 10 mg bid) Case discussed with Dr García, initial EKG showed SVT with aberrancy with HR 150s. Esmolol drip was started. He spoke to Dr Samayoa who will consult to determine a pacemaker placement . Hospital Course Nikolas Hawthorne is a 76 year old male with Coronary artery disease, peripheral vascular disease, a-flutter, HTN, hyperlipidemia, s/p ablation and CABG x3 presenting to the emergency department via EMS due to near-syncopal episode #. Tachybrady syndrome. Present on admission. Recently had significant bradycardia and Metoprolol stopped now dealing with tachycardia due to no rate control medication on board. - EPS consultation for pacemaker placement with Dr Samayoa - No further tachyarrhythmia observed on telemetry 24 hours - Beta joanie discontinued - Ambulatory follow-up for pacemaker placement - Anticoagulation decision after pacemaker procedure #. Hypertension. Elevated on admission due to stress or anxiety - continue Lisinopril 20 mg bid Stable, chronic and/or resolving problems: #. Coronary artery disease status post CABG with stenting Difficult to see ischemic changes on EKG given changes changes and RBBB. Chest pain resolved but brief, typical of angina - Troponin negative - no indications for Heparin drip or medical treatments #. Hyperlipidemia. - continue Lipitor and Zetia # Obesity with possible Sleep Apnea - We will defer outpatient Sleep study to PCP . Exam Vital Signs (Last) Date Time Temp Pulse Resp B/P Pulse Ox O2 Delivery O2 Flow Rate FiO2 05/07/16 03:23 36.5 52 18 138/67 96 Room Air 05/06/16 08:00 2.00 Exam General: Juanjose man, no acute distress HEENT: sclerae anicteric, oral mucosa moist Neck: no JVD Chest: Lungs clear to auscultation Cardiac: S1S2, no murmur, regular rhythm Abdomen: BS normal, non-tender, no inguinal tenderness Extremities: No edema Neuro: A&O, cranial nerves symmetric, motor strength 5/5, coordination normal Test 05/05/16 17:00 05/05/16 19:45 05/06/16 08:50 White Blood Count 4.5th/mm3 (3.8-10.1) Red Blood Count 4.80mil/mm3 (4.40-5.80) Hemoglobin 14.2g/dL (13.8-17.2) Hematocrit 42.8% (41.0-50.0) Mean Corpuscular Volume 89.2fL (81-100) Mean Corpuscular Hemoglobin 29.6pg (27.0-35.0) Mean Corpuscular Hemoglobin Concent 33.2% (32.0-37.0) Red Cell Distribution Width 14.1% (12.3-15.4) Platelet Count 96bil/L (150-400) Neutrophils (%) (Auto) 65.0% (40-74) Lymphocytes (%) (Auto) 21.5% (14-46) Monocytes (%) (Auto) 12.2% (4-12) Eosinophils (%) (Auto) 1.1% (0-5) Basophils (%) (Auto) 0.2% (0-3) Prothrombin Time 11.4sec (8.1-12.5) Prothromb Time International Ratio 1.06ratio Sodium Level 141mEq/L (134-144) Potassium Level 4.3mEq/L (3.5-5.2) Chloride Level 104mEq/L (97-108) Carbon Dioxide Level 24mmol/L (18-29) Blood Urea Nitrogen 12mg/dL (8-27) Creatinine 0.75mg/dL (0.76-1.27) Estimat Glomerular Filtration Rate 108mL/min (>59) Glucose Level 99mg/dL (60-99) Calcium Level 8.9mg/dL (8.5-10.1) Magnesium Level 2.0mg/dL (1.6-2.6) Total Bilirubin 0.9mg/dL (0.0-1.2) Aspartate Amino Transf (AST/SGOT) 31U/L (0-50) Alanine Aminotransferase (ALT/SGPT) 27U/L (0-44) Alkaline Phosphatase 65U/L (25-160) Total Protein 6.3g/dL (6.4-8.4) Albumin 4.2g/dL (3.4-5.0) Thyroid Stimulating Hormone (TSH) 2.070uIU/mL (0.450-4.500) Hold Wheeler Top Tube Received (Received) Urine Color Yellow (YELLOW) Urine Appearance Clear (CLEAR,HAZY) Urine pH 7.5 (5.0-8.0) Urine Specific Dahlgren 1.015 (1.003-1.035) Urine Protein Negativemg/dL (NEG,TRACE) Urine Glucose (UA) Negativemg/dL (NEGATIVE) Urine Ketones Negativemg/dL (NEGATIVE) Urine Occult Blood Negative (NEGATIVE) Urine Nitrite Negative (NEGATIVE) Urine Bilirubin Negative (NEGATIVE) Urine Urobilinogen Normalmg/dL (NORMAL) Urine Leukocyte Esterase Negative (NEGATIVE) Urine RBC 0-2/hpf (0-2) Urine WBC 0-5/hpf (0-5) Urine Epithelial Cells None/hpf (NONE-MOD) Urine Crystals None seen (NONE SEEN) Urine Bacteria None/hpf (NONE-FEW) Urine Hyaline Casts None/lpf (NONE) Urine Granular Casts None seen (NONE SEEN) Urine Waxy Casts None seen (NONE SEEN) Urine Red Blood Cell Casts None seen (NONE SEEN) Urine White Blood Cell Casts None seen (NONE SEEN) Urine Mucus None seen (None Seen) Urine Trichomonas None seen (NONE SEEN) Urine Yeast None (NONE SEEN) Urinalysis Comment None Urine Culture Reflexed Not indicated Hold Urine Received (Received) Total Creatine Kinase 201U/L (21-232) Troponin T 0.096ug/L (0.0-0.011) Free Thyroxine 0.94ng/dL (0.82-1.77) Discharge Medications Discharge Medications Aspirin (Aspirin) 81 Mg Tablet 81 MG PO DAILY (Reported) Atorvastatin (Lipitor) 80 Mg Tablet 80 MG PO QPM (Reported) Ca Cmb 1/Vit D3/B-6/FA/B12/Av (Vitamin D3-Aloe 1,000 Unit Tab) 1 Each Tablet 1 EACH PO DAILY (Reported) Ezetimibe (Zetia) 10 Mg Tablet 10 MG PO QPM (Reported) Flaxseed (Flaxseed Oil) 1,000 Mg Capsule 1,000 MG PO DAILY (Reported) Lisinopril (Lisinopril) 5 Mg Tablet 10 MG PO BID (Reported) Magnesium Oxide (Magnesium) 250 Mg Tablet 250 MG PO DAILY (Reported) Niacin (Niacin) 500 Mg Capsule.er 500 MG PO QPM (Reported) Travoprost (Benzalkonium) (Travoprost 0.004% Eye Drop) 2.5 Ml Drops 2.5 ML AFFECT_EYE QPM (Reported) Ubidecarenone (Co Q-10) 200 Mg Capsule 200 MG PO BID (Reported) As needed Nitroglycerin SL (Nitrostat) 0.4 Mg Tab.subl 0.4 MG SL Q5MIN PRN PRN For Chest Pain (Reported) Followup Plan Follow-up plan Dr. Samayoa's office will schedule you for pacemaker placement. Discharge Diet: Heart Healthy Discharge Activity: Limited until seen by PCP Patient Instructions Contact Dr. Smaayoa's office as they will schedule your follow-up care. Follow-up Provider: Brandan Samayoa MD Follow-up with PCP in: 1 week Time spent 25 minutes copies to: Elmer Landaverde MD; Brandan Samayoa MD, Jeffrey W MD May 07, 2016 07:48
[2016-05-12] MEDS ORDERED: METO25TA6 PO (16:47)
[2016-05-12] MEDS ORDERED: TRAV5DRO BOTH_EYES (16:47)
[2016-05-12] MEDS ORDERED: FLAX100038 PO (16:47)
== END 2016-05-07 10:50 | disposition home or self-care (01) | DRG 310 ==
LOC: SED 16:25 → PCC 18:53
PROVIDERS: ADMIT Hospitalist; ATTEND Hospitalist
DX: I49.5 Sick sinus syndrome (principal); Z95.1 Presence of aortocoronary bypass graft; Z79.82 Long term (current) use of aspirin; Z98.61 Coronary angioplasty status; Z87.891 Personal history of nicotine dependence; I25.10 Atherosclerotic heart disease of native coronary artery without angina pectoris; I10 Essential (primary) hypertension; E78.5 Hyperlipidemia, unspecified; E66.09 Other obesity due to excess calories; Z68.35 Body mass index [BMI] 35.0-35.9, adult; G47.30 Sleep apnea, unspecified

== ENCOUNTER 2016-05-13 00:40 | Day surgery (SDC) | payer MEDICARE, OTHER ==
[2016-05-13] VITALS (15 sets, daily range): BP systolic 98–150; BP diastolic 55–80; PULSE 57–76; RESP 12–20; O2SAT 93–97
[~2016-05-13] VITALS: Ht 190.5 cm; Wt 135.3 kg
[~2016-05-13 00:40] MED LIST changes: -FLAX100010 PO; +FLAX100038 PO; +METO25TA6 PO; -METO50TA3 PO; -RIVA20TA PO; -TRAV2.5D5 AFFECT_EYE; +TRAV5DRO BOTH_EYES
[2016-05-13 13:46] LABS: BASOPHILS % (AUTO) 0.4 % (0-3); EOSINOPHILS % (AUTO) 1.1 % (0-5); MONOCYTES % (AUTO) 10.1 % (4-12); Mean Corpuscular Hemoglobin 29.5 pg (27.0-35.0); Mean Corpuscular Volume 88.3 fL (81-100); NEUTROPHILS % (AUTO) 70.8 % (40-74); Platelet Count 122 bil/L (150-400)
[2016-05-13] MEDS ORDERED: 0.9% Sodium Chloride 1,000 ML ONE (13:59)
[2016-05-13] MEDS ORDERED: Heparin 1,000 Unit/mL 10 mL Inj ONE (13:59)
[2016-05-13] MEDS ORDERED: Bupivacaine-MPF 0.5% 30 mL Inj ONE (13:59)
[2016-05-13 14:10] LABS: INR 1.04 ratio
[2016-05-13] MEDS ORDERED: 0.9% Sodium Chloride 250 ML ONE (14:25)
[2016-05-13] MEDS ORDERED: Vancomycin 1,000 mg Inj ONE (14:27)
--- NOTE | 2016-05-13 14:35 | NUR ---
Admitted for a dual chamber pacemaker for SSS by Dr Samayoa today. Patient and here together and understand plan of care. Admits today in Atrial Fibrillation - ventricular control rates 70-90.
[2016-05-13] MEDS ORDERED: Vancomycin 1,000mg/200 mL NS IV ONE (14:38)
[2016-05-13] MEDS ORDERED: fentaNYL-PF 50 mCg/mL 2 mL Inj ONE (15:44)
[2016-05-13] MEDS ORDERED: Ondansetron 2 mg/mL 2 mL Inj IVPUSH PRN (16:50)
[2016-05-13] MEDS ORDERED: MeTOProlol XL 25 mg ER24 Tablet PO ONE (17:09)
--- NOTE | 2016-05-13 17:50 | DRSVH ---
PROCEDURE: X-RAY CHEST ONE VIEW, PORTABLE ([id number]) INDICATIONS: For new leads placed TECHNIQUE: One view of the chest was acquired. COMPARISON: [facility], CR, XR CHEST 1VW (PORTABLE), 05/05/2016, 16:36. FINDINGS: Surgical changes and devices: Patient is status post median sternotomy. As before, the superior wire is fractured and displaced. There is a new dual-lead cardiac pacer. Lungs and pleura: No pleural effusions or pneumothorax. Lungs are clear. Mediastinum: Mediastinal contours appear normal. Heart size is normal. Bones and chest wall: No suspicious bony lesions. Overlying soft tissues appear unremarkable. IMPRESSION: No acute cardiopulmonary findings. Dictated by: Radha Gutierrez M.D. on 05/13/2016 at 17:48 Approved by: Radha Gutierrez M.D. on 05/13/2016 at 17:49
[2016-05-13] MEDS: HYDROcodone-APAP 5-325 mg Tablet PO PRN ×2 (18:58→22:46)
[2016-05-13] MEDS: 0.9% Sodium Chloride 1,000 ML IV SCH ×3 (19:51→19:52)
--- NOTE | 2016-05-13 19:51 | NUR ---
PABLO Return from laboratory mechanical technician pacemaker placement at 1715. at bedside. No bleeding hematoma at left chest incision. HOB up 45 degress and icepack to left chest. ECG 12 and chest X ray complete. Medicated for pain. Transferred to room 3027 at 1930 by bed. Report to receiving RN.
--- NOTE | 2016-05-13 19:53 | NUR ---
Transfer Pt on unit from [facility] at 1935 in bed. Bedside report received from PABLO RN. Chest dressing CDI, VSS, pain stable at 4/10 pain. Arm placed in sling and tele applied. A&Ox3. Pt ambulated to BR SBA, steady gait observed, denies dizziness. Tolerating PO intake well.
[2016-05-13] MEDS: MeTOProlol XL 25 mg ER24 Tablet PO SCH (21:40)
[2016-05-14 00:32] VITALS: BP 126/67; PULSE 60; RESP 18; O2SAT 95
--- NOTE | 2016-05-14 00:33 | NUR ---
Telemetry Ectopy Pt had multiple runs of VTach as well as PVCs. VSS. Rate in 60-70, pt denies symptoms of CP. Only incisional pain r/t pacemaker placement. Dr Faye alexandra, made aware, orders to give nighttime dose of metoprolol that had been held, now. No new orders.
[2016-05-14] MEDS: MeTOProlol XL 25 mg ER24 Tablet PO SCH (00:39)
[2016-05-14] MEDS ORDERED: Vancomycin 1 Gm/200 mL NS Premix IV ONE (01:00)
[2016-05-14] MEDS: 0.9% Sodium Chloride 1,000 ML IV SCH ×4 (02:50→08:26)
[2016-05-14 03:12] VITALS: BP 129/79; PULSE 58; RESP 18; O2SAT 95
[2016-05-14] MEDS: HYDROcodone-APAP 5-325 mg Tablet PO PRN ×2 (03:15→07:36)
[2016-05-14] MEDS ORDERED: Vancomycin Inj 2,000 MG in 0.9% Sodium Chloride 500 ML IV ONE (04:50)
--- NOTE | 2016-05-14 06:57 | NUR ---
OFF unit/CXR Pt taken off unit by transporter via wc. patient care technician made aware. Pt c/o pain at incision, will medicate upon return.
--- NOTE | 2016-05-14 07:48 | OP ---
[address] [address] OPERATIVE REPORT PATIENT: ALBERTO YATES : 1940 MR#: [id number] ADMIT: 05/13/2016 JOB ID: [id number] DATE OF SURGERY: 05/13/2016 PREOPERATIVE DIAGNOSIS(ES): Sick sinus syndrome. POSTOPERATIVE DIAGNOSIS(ES): Sick sinus syndrome. PROCEDURE PERFORMED: 1. Dual-chamber pacemaker implantation. 2. Fluoroscopy. SURGEON: Brandan Samayoa MD, electrophysiology attending. SLEEP TECHNOLOGIST: Kwesi Sutherland PA-C. IMPLANTED DEVICE: 1. [employer] pulse generator, model KG2244, serial number [id number]. 2. Right atrial lead [employer], [id number], 52 cm, serial number [id number]. 3. RV lead [employer], [id number], 58 cm, serial number [id number]. ANESTHESIA: Bolus dosing of Versed and fentanyl utilized for an appropriate level of sedation. INDICATION: The patient is a pleasant 76-year-old man with coronary artery disease, bypass grafting, paroxysmal atrial flutter, status post ablation, paroxysmal atrial fibrillation and sick sinus syndrome. After discussion of risks and benefits of pacemaker implantation, he opted to proceed. PROCEDURAL DESCRIPTION: Following informed consent, the patient was taken to the EP laboratory in a fasting nonsedated state, where he was prepped and draped in usual sterile fashion. The left infraclavicular region was infiltrated with 40 cc of a 50/50 mixture of bupivacaine and lidocaine. Once adequate anesthesia had been achieved, a 3 cm transverse incision was performed 2 cm below the left clavicle. Dissection was carried down to the pectoralis fascia and a pocket was then fashioned using combination of electrocautery and blunt dissection. Once adequate anesthesia had been achieved, access to the left axillary vein was gotten with a micropuncture needle twice to deploy two 0.035, 3 mm J guidewires. Over the first of these, an 8-[place] tear-away sheath was advanced. Once the guidewire was removed, an active fixation lead was advanced to the RV outflow tract and all the way to the RV apex. The lead was affixed in position using associated active fixation screw. It was connected to external analyzer and demonstrated appropriately sensed R waves, impedance, capture threshold, was checked to 10 V and there was no evidence of diaphragmatic stimulation. Attention was now paid to placement of the right atrial lead. Over the other previously deployed J guidewire, another 8-[place] tear-away sheath was advanced. Once the guidewire was removed, an active fixation lead was then advanced to the right atrial appendage. It was affixed in position using associated active fixation screw. Lead was connected to external analyzer and demonstrated appropriately sensed fibrillation waves, impedance, and no diaphragmatic stimulation at 10 V. The pacemaker is pacing. Once the position and redundancy of both leads was confirmed with multiple fluoroscopic views, the leads were anchored to the prepectoralis fascia using their associated anchoring sleeves and Ethibond sutures. The pocket was then copiously irrigated with antibiotic solution. The leads were connected to a generator. The generator was placed into the pocket and was affixed to the floor of the pocket using 1-0 Ti-Cron suture. The incision was then closed with running layers of absorbable suture. The wound was dressed with skin adhesive and a small dressing. At the end of the procedure, the needle, sponge and instrument counts were all correct. COMPLICATIONS: None. ESTIMATED BLOOD LOSS: Negligible. DEVICE MEASURED DATA: 1. Right atrial lead 1.6 mV, fibrillation waves, 400 ohms. 2. RV lead 6.7 mV, 640 ohms, 0.5 V at 0.4 msec. FINAL PROGRAM PARAMETERS: DDD 60-130 beats per minute with mode switched to DDI 60 beats per minute. IMPRESSION: Successful dual-chamber pacemaker implantation. PLAN: 1. Stat portable chest x-ray. 2. PA and lateral chest x-ray in the morning. 3. Device interrogation tomorrow. 4. IV vancomycin through tomorrow. 5. Doxycycline x7 days. 6. Wound check in one week. 7. Initiate beta-blockade now and antiarrhythmic with anticoagulation. ATTENDING STATEMENT: Brandan Samayoa MD, electrophysiology attending, was present for and supervised/performed all aspects of this procedure.
[2016-05-14 07:57] VITALS: BP 122/78; PULSE 60; RESP 18; O2SAT 95
--- NOTE | 2016-05-14 09:12 | DRSVH ---
PROCEDURE: X-RAY CHEST, TWO VIEWS ([id number]) INDICATIONS: For new lead placement TECHNIQUE: 2 views of the chest were acquired. COMPARISON: [facility], CR, XR CHEST 1VW (PORTABLE), 05/13/2016, 16:49. FINDINGS: Surgical changes and devices: Post median sternotomy and there is a fracture of the proximal sternal wire. Stable positioning of left chest cardiac pacer. Lungs and pleura: No pleural effusions or pneumothorax. Lungs are clear. Mediastinum: Mediastinal contours are normal. Heart size is normal. Bones and chest wall: No suspicious bony abnormalities. Soft tissues appear unremarkable. IMPRESSION: Stable chest. Dictated by: Uriah Ramos [facility] Interpreted: Rae Callahan MD on 05/14/2016 at 9:10 Transcribed by: HAM on 05/14/2016 at 9:11 Approved by: Rae Callahan MD, PhD on 05/14/2016 at 17:16
[2016-05-14 09:29] LABS: APPEARANCE,URINE HAZY (CLEAR,HAZY); COLOR,URINE YELLOW (YELLOW); OCCULT BLOOD,URINE NEGATIVE (NEGATIVE); UROBILINOGEN,URINE NORMAL (NORMAL)
[2016-05-14 10:41] VITALS: PULSE 80
--- NOTE | 2016-05-14 10:50 | PCM.DIMED ---
Discharge Instructions Date of Service May 14, 2016 Dates of Hospitalization Discharge Diagnosis Discharge Diagnosis CAD Hypertension Sleep Apnea Sinus Bradycardia Diet Heart Healthy Activity Other (Do not extend left arm high above shoulder for one month. Do not lift more than 10 lbs with the left arm for one month.) Call your provider Fever or Chills, Bleeding, Excessive diarrhea Patient Instructions Follow-up in: 1 week Mid-level Provider (F9): Kwesi Sutherland PA-C Follow-up with Mid-level in: 6 weeks Kwesi Sutherland PA-C May 14, 2016 10:50
[2016-05-14] MEDS ORDERED: DOXY100C2 PO (11:06)
[2016-05-14] MEDS ORDERED: METO25TA99 PO (11:06)
[2016-05-14] MEDS ORDERED: HYDR-4003 PO (11:07)
[2016-05-14 11:15] VITALS: BP 136/77; PULSE 60; RESP 16; O2SAT 94
--- NOTE | 2016-05-14 13:31 | NUR ---
Discharge Pt d/c home with at 1330 via wc by an aide. IV x2 d/c by SRN. Tele taken off, monitor aware. Discharge info provided, all questions answered. Pt c/o noticing his heart beat faster for several seconds-monitor called at the same time. notified, 1x metoprolol order given. Cardio PA also reassessed pacemaker and made readjustments. Pt states to have felt better afterwards. VSS. All belongings left with pt.
--- NOTE | 2016-05-15 07:21 | DIS ---
[address] [address] DISCHARGE SUMMARY PATIENT: ALBERTO YATES : 1940 MR#: [id number] ADMIT: 05/13/2016 JOB ID: [id number] DIS: 05/14/2016 REASON FOR ADMISSION: Pacemaker implant. CHIEF COMPLAINT: Lightheadedness and weakness from slow heart rate. HISTORY: The patient is a pleasant 76-year-old man with a history of coronary artery disease with prior bypass surgery who also has paroxysmal atrial flutter and atrial fibrillation intermixed with sinus bradycardia that is symptomatic. While medications control the fast heart rate they only make the bradycardia more slow and symptomatic. Therefore, he needed a pacemaker. COURSE IN HOSPITAL: The patient was admitted through the [facility] and taken to the dairy lab technician, where he received the dual-chamber cardiac pacemaker without incident. He was then taken back to the [facility] for recovery from sedation and then transferred up to the [facility] for overnight observation and telemetry monitoring. During the night, he had episodes of atrial fibrillation with rapid rate and was given additional metoprolol. In the morning, he felt well for discharge home and was ambulatory without difficulty. The incision was closed and dry and there was no hematoma. Chest x-ray showed good lead position and no pneumothorax. Device evaluation showed excellent capture and sensing thresholds. He is aware of palpitations but has not been lightheaded or dyspneic and does not have chest pain. DISPOSITION: The patient was discharged home in good condition with a follow up appointment at the [facility] office in one week. He was asked not to extend his left elbow high above his shoulder for one month and not to lift, push or pull more than 10 pounds with the left arm for one month. He may shower after one day. He will follow a heart healthy diet and take medications as prescribed. DISCHARGE MEDICATIONS: This is a long list. MEDICATIONS: 1. Doxycycline 100 mg daily for one week. 2. Hydrocodone/acetaminophen 5/325 mg p.o. q.4 hours p.r.n. pain. 3. Metoprolol succinate 25 mg b.i.d. 4. Aspirin 81 mg daily. 5. Atorvastatin 40 mg daily. 6. Calcium carbonate combination tablet 1 daily. 7. Zetia 10 mg daily. 8. Flaxseed oil capsules 1000 mg daily. 9. Lisinopril 20 mg b.i.d. 10. Magnesium oxide 250 mg daily. 11. Niacin 500 mg each evening. 12. Nitroglycerin sublingual 0.4 mg tablets as needed for chest pain. 13. Travoprost eyedrops both eyes daily 14. CoQ 10, 200 mg b.i.d. FINAL DIAGNOSES: 1. Coronary artery disease. 2. Hypertension. 3. Sleep apnea. 4. Sinus bradycardia. 5. Sick sinus syndrome with tachycardia/bradycardia syndrome.
== END 2016-05-14 13:33 | disposition home or self-care (01) ==
LOC: SOUO 00:40 → MPC 19:13 → SOUO 05-14 13:33
PROVIDERS: ATTEND Internal Medicine Cardiovascular Disease
DX: I49.5 Sick sinus syndrome (principal); I25.10 Atherosclerotic heart disease of native coronary artery without angina pectoris; I48.92 Unspecified atrial flutter; Z95.1 Presence of aortocoronary bypass graft; I10 Essential (primary) hypertension; I25.82 Chronic total occlusion of coronary artery; E78.5 Hyperlipidemia, unspecified; I44.0 Atrioventricular block, first degree; I45.10 Unspecified right bundle-branch block; I25.2 Old myocardial infarction; Z95.5 Presence of coronary angioplasty implant and graft; G47.33 Obstructive sleep apnea (adult) (pediatric); I77.1 Stricture of artery
CPT/HCPCS: 33208; 36415; 71010; 71020; 80048; 81000; 85025; 85610; 93005; 99152; 99153; C1769; C1785; C1892; C1898; J1644; J2250; J3010; J3370; J7050